=== PATIENT | female | born 1980 | race Hispanic/Latino ===

== ENCOUNTER 2025-02-05 06:16 | Day surgery (SDC) | payer OTHER, BC ==
[2025-02-03 13:30] LABS: BASOPHILS # (AUTO) 0.04 K/uL (0.00-0.20); BASOPHILS % (AUTO) 0.8 % (0.0-5.0); EOSINOPHILS # (AUTO) 0.13 K/uL (0.00-0.70); EOSINOPHILS % (AUTO) 2.5 % (0.0-8.0); HEMATOCRIT 40.5 % (36-48); IMMATURE GRANULOCYTE ABSOLUTE 0.01 K/uL (0-1); LYMPHOCYTES % (AUTO) 38.8 % (21.0-51.0); MEAN CORPUSCULAR HEMOGLOBIN 32.5 pg (27.0-33.0); MEAN CORPUSCULAR HGB CONC 34.1 g/dL (32.0-36.0); MEAN CORPUSCULAR VOLUME 95.5 fL (79-99); MONOCYTES # (AUTO) 0.3 K/uL (0.1-1.0); MONOCYTES % (AUTO) 5.5 % (3.0-13.0); NEUTROPHILS # (AUTO) 2.7 K/uL (1.8-7.7); NEUTROPHILS % (AUTO) 52.2 % (40.0-77.0); PLATELET COUNT (AUTO) 264 K/uL (130-400); RED BLOOD CELL COUNT(AUTO) 4.24 MIL/uL (4.00-5.50); RED CELL DISTRIBUTION WIDTH 12.1 % (11.0-15.5); WHITE BLOOD COUNT (AUTO) 5.1 K/uL (4.8-10.8)
[2025-02-03 13:37] VITALS: BP 192/77; PULSE 63; RESP 18; TEMP 97.7
[2025-02-03 13:39] LABS: CREATININE 0.6 mg/dL (0.5-1.0)
[2025-02-03 13:43] LABS: INR 1.01 (0.85-1.15); PROTHROMBIN TIME 10.7 SEC (9.6-11.6)
[2025-02-03 13:44] LABS: PARTIAL THROMBOPLASTIN TIME 30.2 SEC (26.3-35.5)
--- NOTE | 2025-02-04 06:37 | EKG ---
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
[2025-02-05] VITALS (13 sets, daily range): BP systolic 136–166; BP diastolic 67–94; PULSE 61–79; RESP 13–17; TEMP 97.3–97.7
[~2025-02-05] VITALS: Ht 160 cm; Wt 74.2 kg
[~2025-02-05 06:16] MED LIST: ERGO500093 PO; LOSA50TA64 PO; NORE-74 PO
[2025-02-05] MEDS ORDERED: NEOSTIGMINE METHYLSULFATE 1MG/ML IV ONE (07:05)
[2025-02-05] MEDS ORDERED: ondanSETRON 4MG INJ ONE (07:05)
[2025-02-05] MEDS ORDERED: LIDOCAINE PF 100MG/5ML (2%) SYRINGE 5ML ONE ×2 (07:05→08:14)
[2025-02-05] MEDS ORDERED: proPOFol 10 MG/ML 20ML VIAL IV ONE (07:05)
[2025-02-05] MEDS ORDERED: dexaMETHasone SOD PHOSPHATE 10MG/ML 1ML VIAL ONE (07:05)
[2025-02-05] MEDS ORDERED: rocuRONium bROMide 10MG/1ML 5ML VL ONE (07:05)
[2025-02-05] MEDS ORDERED: SUCCINYLCHOLINE CHLORIDE 20 MG/ML 10 ML VIAL ONE (07:05)
[2025-02-05] MEDS ORDERED: GLYCOPYRROLATE 0.2 MG/ML 5 ML VIAL ONE (07:05)
[2025-02-05] MEDS ORDERED: FENTanyl CITRate PF 50 MCG/1 ML 2ML VIAL ONE ×3 (07:06→08:36)
[2025-02-05] MEDS ORDERED: MIDAZOLAM HCL 1 MG/ML 2ML VIAL ONE (07:06)
[2025-02-05] MEDS: ceFAZolin SODIUM 2 GM VIAL ONE (07:20)
[2025-02-05] MEDS: LACTATED RINGERS 1000ML 1,000 ML IV ONE (07:20)
[2025-02-05] MEDS: metRONIDazole 500MG/100ML BAG 200 ML ONE (07:21)
[2025-02-05] MEDS ORDERED: FAMOTIDINE 20MG VIAL IV ONE (07:23)
[2025-02-05] MEDS ORDERED: acetaMINOPHEN 100 ML ONE (07:24)
[2025-02-05] MEDS ORDERED: BUPIvacaine/PF 0.25% 30ML VIAL IJ ONE (07:38)
[2025-02-05] MEDS ORDERED: INDOCYANINE GREEN 25 MG VIAL IJ ONE (07:47)
[2025-02-05] MEDS: ceFAZolin SODIUM 2 GM VIAL IVPB ONE (07:49)
--- NOTE | 2025-02-05 09:29 | OP ---
Operative Note: DATE OF PROCEDURE: 02/05/25 SURGEON: RYLIE TROY MD [employer]LL[employer] DEVELOPER: [Please review operative record] ANESTHESIA: [General and local] ANESTHESIOLOGIST/CALENDAR CONTROL CLERK BLOOD BANK: [Please review operative record] PREOPERATIVE DIAGNOSIS: [Symptomatic cholelithiasis] POSTOPERATIVE DIAGNOSIS: [Same] SYNOPSIS: [Mildly inflamed gallbladder, ICG green appropriately identifying cystic duct, common bile duct, common hepatic duct. No ductal dilatation or evidence of intraductal filling defects] PROCEDURE: [Robotic assisted laparoscopic cholecystectomy, ic green cholangiography] ESTIMATED BLOOD LOSS: [10 cc] INDICATIONS: [Patient is a 44-year-old female with chronic right upper quadrant postprandial pain who was found to have cholelithiasis on imaging. Diagnosed with symptomatic cholelithiasis. Patient failed conservative management with dietary changes and analgesics. Recommendation was given for cholecystectomy. Risks, benefits, alternatives were discussed with the patient. All questions were answered. Patient agreed to proceed with surgical intervention] DESCRIPTION OF PROCEDURE: [After appropriate consent was obtained, the patient was brought into the operating room and placed in supine position on the operating table. SCDs were placed, preop antibiotics were given. Patient underwent induction of general anesthesia, endotracheal intubation. Patient was then prepped and draped in usual sterile fashion. Time-out was performed. Through a left subcostal incision, Veress needle was inserted into the peritoneal cavity. Insufflation was allowed to 12 mmHg. Through a infraumbilical 8 mm incision, trocar and laparoscope were inserted into the peritoneal cavity using [employer]. Rest of my trocars were all placed under direct visualization. Patient was positioned in the reverse Trendelenburg at 20. The Carl robot was docked. Insufflation was lowered to 10 mmHg. Upon evaluation of the gallbladder, it appeared mildly inflamed. The gallbladder fundus was grasped and retracted cephalad. A few omental adhesions were taken down with hook electrocautery. The infundibulum was then grasped and retracted medially and laterally in order to expose Calot's triangle. Calot's triangle was dissected using a combination of hook and blunt dissection. Two structures were identified. Ic green appropriately identified the cystic duct. No evidence of biliary dilatation, ap propriate identification of the common bile duct and hepatic duct. Cystic artery was also isolated. Once confirmation with IC green of cystic duct was performed, the cystic duct was clipped 3 times and sharply divided with 2-0 this clips staying behind. Cystic artery was clipped one time and cauterized and sharply divided using scissors. The gallbladder was then removed from the gallbladder fossa using bipolar energy. Hemostasis in the gallbladder fossa was obtained using bipolar energy. Gallbladder was placed in the Endo-Catch bag. At this time the Carl robot was undocked. The gallbladder was removed through one of the 8 mm incisions. This port fascia was closed with 0 Vicryl suture through a suture Passer. Final inspection revealed adequate hemostasis, no concerns for leakage. All instruments were removed. Counts were correct at the end of the case. Abdomen was deflated. Skin incisions were closed with 4-0 Monocryl. Dermabond was applied over the incisions. Patient tolerated the procedure well. Patient was transferred to recovery in good condition.] RYLIE TROY MD February 05, 2025 09:29
--- NOTE | 2025-02-05 09:30 | DS ---
Discharge Summary Hospital Course Patient is a 44-year-old female who was admitted from the outpatient setting for elective robotic assisted laparoscopic cholecystectomy with IC green cholangiography due to symptomatic cholelithiasis on 02/05/2025. No issues during the procedure. Patient tolerated the procedure well. No major concerns at this time. She remains hemodynamically stable, afebrile. Normal sinus rhythm. Aerating well on 2 L nasal cannula. Abdomen is benign, incisions clean dry and intact. No rebound or guarding. Patient will be observed in recovery in discharge home per anesthesia protocol. Postop meds have been submitted to the patient's pharmacy, postop follow up already in place. Patient to shower 24 hours after the procedure. No need to cover incisions. Advance diet as tolerated. No lifting more than 20 lb for a month. Return precautions given including fevers of 101.5 or higher, worsening abdominal pain, intractable nausea vomiting or just any concerns about her overall health. RYLIE TROY MD February 05, 2025 09:30
--- NOTE | 2025-02-05 10:40 | NUR ---
BOTH PT AND GIVEN VERBAL AND WRITTEN DISCHARGE INSTRUCTIONS. ALL QUESTIONS ANSWERED. PT WILL BE SENT VIA WHEELCHAIR WILL BE DRIVING.
== END 2025-02-05 10:58 | disposition home or self-care (01) ==
LOC: DAH 06:16
PROVIDERS: ATTEND Surgery
DX: K80.10 Calculus of gallbladder with chronic cholecystitis without obstruction (principal); K82.8 Other specified diseases of gallbladder; K44.9 Diaphragmatic hernia without obstruction or gangrene; Z87.898 Personal history of other specified conditions; Z79.899 Other long term (current) drug therapy; Z79.01 Long term (current) use of anticoagulants
CPT/HCPCS: 80048; 84703; 85025; 85610; 85730; 86850; 86900; 86901; 36415; 93005; 47563; 88304; A4663; J7030; A4215 ×2; J7120; J3490 ×4; J3010 ×3; J1100; J0330; J0665 ×2; J2003 ×2; J2250; J2704; J2405; J2710; J0690 ×2; A4930; A4223; A4222; A4221; A4600; S2900

== ENCOUNTER → 2025-05-27 | Outpatient (CLI) | payer OTHER, BC ==
[~2025-05-27] MED LIST changes: +IOHEXOL-350 75 ML VIAL IV ONE
--- NOTE | 2025-05-28 10:26 | HMCIMG ---
EXAM: CT Abdomen and Pelvis with IV contrast CLINICAL HISTORY: Patient presents with gallbladder calculus without cholecystitis or obstruction. TECHNIQUE: Axial computed tomography images of the abdomen and pelvis with intravenous contrast. CONTRAST: 75 mL of Omnipaque 350. COMPARISON: None provided. FINDINGS: LUNG BASES: Clear. No pleural effusion. LIVER: Unremarkable. GALLBLADDER AND BILE DUCTS: Gallbladder surgically absent. No biliary ductal dilatation. No calcified ductal stones. PANCREAS: Unremarkable. SPLEEN: Unremarkable. ADRENAL GLANDS: Unremarkable. KIDNEYS, URETERS, AND BLADDER: Normal in size and morphology. No hydronephrosis, hydroureter, or urinary calculi. STOMACH AND BOWEL: Occasional uncomplicated colonic diverticula. Mild constipation. No evidence of bowel obstruction or enteritis/colitis. APPENDIX: Normal appendix. PERITONEUM: No free fluid or free air. LYMPH NODES: No lymphadenopathy. REPRODUCTIVE: Unremarkable as visualized. VASCULATURE: No abdominal aortic aneurysm. BONES: No aggressive or acute osseous abnormality. IMPRESSION: Post-cholecystectomy status. No biliary ductal dilatation. No calcified ductal stones. No bowel obstruction or inflammation. Occasional uncomplicated colonic diverticulosis. Mild constipation. Normal appendix. Normal kidneys. No hydronephrosis. /Margi
== END | disposition home or self-care (01) ==
LOC: RAH 07:53
PROVIDERS: ATTEND Surgery
DX: K57.30 Diverticulosis of large intestine without perforation or abscess without bleeding (principal); K80.20 Calculus of gallbladder without cholecystitis without obstruction; K59.00 Constipation, unspecified; Z90.49 Acquired absence of other specified parts of digestive tract
CPT/HCPCS: 74177; Q9967